=== PATIENT | male | born 1990 | race Two or more races ===

== ENCOUNTER 2019-04-07 13:08 | Emergency (ER) | payer SELFPAY ==
--- NOTE | 2019-04-07 13:26 | EDM.PDOC ---
ED HPI GENERAL MEDICAL PROBLEM - General Chief Complaint: Respiratory Problem Stated Complaint: COUGH,FEVER Time Seen by Provider: 04/07/19 13:21 Source of Information: Reports: Patient History Limitations: Reports: No Limitations - History of Present Illness INITIAL COMMENTS - FREE TEXT/NARRATIVE: HISTORY AND PHYSICAL: History of present illness: Patient is a 28-year-old male who presents to the emergency room with complaints of fever and cough x 1-2 days. States he has been using Tylenol and ibuprofen without much relief. No previous history of any lung related illnesses. Patient denies any neck pain/stiffness, headache, change in vision, syncope or near syncope. Denies any chest pain, back pain, or shortness of breath. Denies any abdominal pain, nausea, vomiting, diarrhea, constipation or dysuria. Has not noted any blood in urine or stool. Patient has been eating and drinking appropriately. Review of systems: As per history of present illness and below otherwise all systems reviewed and negative. Past medical history: As per history of present illness and as reviewed below otherwise noncontributory. Surgical history: As per history of present illness and as reviewed below otherwise noncontributory. Social history: See social history for further information Family history: As per history of present illness and as reviewed below otherwise noncontributory. Physical exam: General: Well-developed and well-nourished 28-year-old female. Alert and oriented. Nontoxic appearing and in no acute distress. HEENT: Atraumatic, normocephalic, pupils equal and reactive bilaterally, negative for conjunctival pallor or scleral icterus, mucous membranes moist, TMs normal bilaterally, throat clear, neck supple, nontender, trachea midline. No drooling or trismus noted. No meningeal signs. No hot potato voice noted. Lungs: Slightly diminished to bases bilaterally otherwise clear to auscultation , breath sounds equal bilaterally, chest nontender. Heart: S1S2, regular rate and rhythm without overt murmur Abdomen: Soft, nondistended, nontender. Negative for masses or hepatosplenomegaly. Negative for costovertebral tenderness. Skin: Intact, warm, dry. No lesions or rashes noted. Extremities: Atraumatic, moves all extremities per self without difficulty or deficits, negative for cords or calf pain. Neurovascular unremarkable. Neuro: Awake, alert, oriented. Cranial nerves II through XII unremarkable. Cerebellum unremarkable. Motor and sensory unremarkable throughout. Exam nonfocal. Notes: Chest x-ray is negative. Influenza A positive. Symptoms have started within the last 48 hours, discussed the Tamiflu and he would like this medication at this time. We discussed Signs and symptoms that would prompt him to return to the emergency room. Supportive care measures were reviewed and discussed. Voices understanding and is agreeable to plan of care. Denies any further questions or concerns at this time. Diagnostics: CXR, Influenza Therapeutics: None Prescription: Zpak Pro-Air Inhaler Impression: Influenza A Plan: 1. Stop smoking. Good hand washing and contact precautions as you are contagious. 2. Take medications as directed. Small frequent sips of fluids to prevent dehydration. Get plenty of rest. 3. Follow up with your primary care provider. Return to the ED as needed as discussed. Definitive disposition and diagnosis as appropriate pending reevaluation and review of above. Headache Pain Score (Numeric/FACES): 10 Throat Pain Score (Numeric/FACES): 10 - Related Data Allergies Allergy/AdvReac Type Severity Reaction Status Date / Time No Known Allergies Allergy Verified 04/07/19 13:25 Home Meds: Home Meds Albuterol Sulfate [Proair Hfa] 2 inh IH Q4HR PRN #1 [id number].[email or web address] 04/07/19 [Rx] Oseltamivir [Tamiflu] 75 mg PO BID 5 Days #10 cap 04/07/19 [Rx] ED ROS GENERAL - Review of Systems Review Of Systems: Comprehensive ROS is negative, except as noted in HPI. ED EXAM, GENERAL - Physical Exam Exam: See Below (See dictation) Course - Vital Signs Last Recorded V/S: Last Vital Signs Temp 100.5 F 04/07/19 13:22 Pulse 85 04/07/19 13:22 Resp 18 04/07/19 13:22 BP 122/76 04/07/19 13:22 Pulse Ox 94 L 04/07/19 13:22 - Orders/Labs/Meds Orders: Active Orders 24 hr Category Date Time Status RT Aerosol Therapy [RC] ASDIRECTED Care 04/07/19 13:27 Active Chest 2V [CR] Stat Exams 04/07/19 13:15 Taken Meds: Medications Discontinued Medications Generic Name Dose Route Start Last Admin Trade Name Freq PRN Reason Stop Dose Admin Albuterol/Ipratropium 3 ml 04/07/19 13:27 04/07/19 13:36 Duoneb 3.0-0.5 Mg/3 Ml NEB 04/07/19 13:28 3 ml ONETIME ONE Administration Departure - Departure Time of Disposition: 14:04 Disposition: Home, Self-Care 01 Clinical Impression: Influenza A - Discharge Information Prescriptions: Albuterol Sulfate [Proair Hfa] 2 inh IH Q4HR PRN #1 hfa.aer.ad PRN Reason: Dyspnea Oseltamivir [Tamiflu] 75 mg PO BID 5 Days #10 cap Instructions: Influenza, Adult, [id number] Referrals: PCP,None [Primary Care Provider] - Forms: ED Department Discharge Additional Instructions: The following information is given to patients seen in the emergency department who are being discharged to home. This information is to outline your options for follow-up care. We provide all patients seen in our emergency department with a follow-up referral. The need for follow-up, as well as the timing and circumstances, are variable depending upon the specifics of your emergency department visit. If you don't have a primary care physician on staff, we will provide you with a referral. We always advise you to contact your personal physician following an emergency department visit to inform them of the circumstance of the visit and for follow-up with them and/or the need for any referrals to a consulting specialist. The emergency department will also refer you to a specialist when appropriate. This referral assures that you have the opportunity for follow-up care with a specialist. All of these measure are taken in an effort to provide you with optimal care, which includes your follow-up. Under all circumstances we always encourage you to contact your private physician who remains a resource for coordinating your care. When calling for follow-up care, please make the office aware that this follow-up is from your recent emergency room visit. If for any reason you are refused follow-up, please contact the [facility] Emergency Department at and asked to speak to the emergency department charge nurse. [facility] [address] [place] [address] [id number] [place] [address] 1. Stop smoking. Good hand washing and contact precautions as you are contagious. 2. Take medications as directed. Small frequent sips of fluids to prevent dehydration. Get plenty of rest. 3. Follow up with your primary care provider. Return to the ED as needed as discussed. - My Orders Last 24 Hours: My Active Orders 04/07/19 13:15 Chest 2V [CR] Stat 04/07/19 13:27 RT Aerosol Therapy [RC] ASDIRECTED - Assessment/Plan Last 24 Hours: My Active Orders 04/07/19 13:15 Chest 2V [CR] Stat 04/07/19 13:27 RT Aerosol Therapy [RC] ASDIRECTED
[2019-04-07] MEDS ORDERED: Albuterol/Ipratropium 3.0-0.5 MG/3 ML Neb Soln NEB ONE (13:27)
--- NOTE | 2019-04-07 14:04 | CR ---
INDICATION: Chest pain TECHNIQUE: Chest radiograph 2 views COMPARISON: None FINDINGS: Mediastinum: The mediastinum is normal in appearance. The heart silhouette is normal in size and morphology. Lung: Both lungs are unremarkable in appearance with small lung volumes. No sign of pleural effusion seen. No pneumothorax is identified. Bone and Soft tissue: Unremarkable for age. IMPRESSION: 1. No acute cardiopulmonary disease is seen. Dictated by: Kevin Ding MD @ 04/07/2019 14:02:48 (Electronically Signed)
== END 2019-04-07 14:11 | disposition home or self-care (01) ==
LOC: MW.ED 13:08
DX: J10.1 Influenza due to other identified influenza virus with other respiratory manifestations (principal)
CPT/HCPCS: 71046; 71046-26; 87804; 94640; 99284-25; J7620-GY